=== PATIENT | female | born 1950 | race African-American/Black ===

== ENCOUNTER 2017-10-14 00:39 | Emergency (ER) | payer MEDICARE, BC ==
[2017-10-14] MEDS ORDERED: Ondansetron HCl/PF 4 MG/2 ML Vial ONE (01:55)
--- NOTE | 2017-10-14 07:56 | RAD ---
TWO VIEWS CHEST: DATE: 10/14/17. PROVIDED CLINICAL HISTORY: Cough and fever. COMPARISON: Comparison is made with the study dated 10/03/12. FINDINGS: Cardiac silhouette remains enlarged. No focal consolidation, pleural fluid, or pneumothorax apparent . Degenerative changes are seen involving the thoracic spine. IMPRESSION: Cardiomegaly without evidence for an acute cardiopulmonary process. POS: OFF
== END 2017-10-14 02:55 | disposition home or self-care (01) ==
LOC: ERS 00:39
DX: J11.1 Influenza due to unidentified influenza virus with other respiratory manifestations (principal); I48.91 Unspecified atrial fibrillation; Z79.82 Long term (current) use of aspirin; Z79.01 Long term (current) use of anticoagulants; Z79.899 Other long term (current) drug therapy
CPT/HCPCS: 71020; 96361; 96374; J2405

== ENCOUNTER 2018-10-10 22:46 | Emergency (ER) | payer MEDICARE, BC | END 2018-10-11 00:55 | disposition home or self-care (01) | LOC: ERS 22:46 | DX: L03.211 Cellulitis of face (principal); E87.5 Hyperkalemia; I10 Essential (primary) hypertension; I48.91 Unspecified atrial fibrillation; Z79.899 Other long term (current) drug therapy | CPT/HCPCS: 99283 ==

== ENCOUNTER 2021-08-23 13:24 | Outpatient (CLI) | payer MEDICARE, BC | END 2021-08-23 13:25 | disposition home or self-care (01) | LOC: BICMAMMO 13:24 | PROVIDERS: ATTEND Nurse Practitioner Family | DX: Z13.820 Encounter for screening for osteoporosis (principal); Z78.0 Asymptomatic menopausal state; M81.0 Age-related osteoporosis without current pathological fracture; M85.851 Other specified disorders of bone density and structure, right thigh; M85.852 Other specified disorders of bone density and structure, left thigh | CPT/HCPCS: 77063; 77067; 77080 ==

== ENCOUNTER 2021-10-20 13:34 | Outpatient (CLI) | payer MEDICARE, BC | END 2021-10-20 13:35 | disposition home or self-care (01) | LOC: BICRAD 13:34 | PROVIDERS: ATTEND Family Medicine | DX: M25.512 Pain in left shoulder (principal); G89.29 Other chronic pain; M47.812 Spondylosis without myelopathy or radiculopathy, cervical region | CPT/HCPCS: 72040 ==

== ENCOUNTER 2022-08-24 09:59 | Outpatient (CLI) | payer MEDICARE, BC | END 2022-08-24 10:00 | disposition home or self-care (01) | LOC: BICMAMMO 09:59 | PROVIDERS: ATTEND Family Medicine | DX: Z12.31 Encounter for screening mammogram for malignant neoplasm of breast (principal); Z80.3 Family history of malignant neoplasm of breast | CPT/HCPCS: 77063; 77067 ==

== ENCOUNTER 2023-12-09 12:40 | Outpatient (CLI) | payer BC, MEDICARE | END 2023-12-09 12:41 | disposition home or self-care (01) | LOC: BICMAMMO 12:40 | PROVIDERS: ATTEND Family Medicine | DX: Z12.31 Encounter for screening mammogram for malignant neoplasm of breast (principal); Z80.3 Family history of malignant neoplasm of breast | CPT/HCPCS: 77063; 77067 ==

== ENCOUNTER 2023-12-30 14:45 | Outpatient (CLI) | payer MEDICARE | END 2023-12-30 14:46 | disposition home or self-care (01) | LOC: BICMAMMO 14:45 | PROVIDERS: ATTEND Family Medicine | DX: Z13.820 Encounter for screening for osteoporosis (principal); N95.9 Unspecified menopausal and perimenopausal disorder; M85.89 Other specified disorders of bone density and structure, multiple sites | CPT/HCPCS: 77080 ==

== ENCOUNTER 2024-09-24 13:59 | Emergency (ER) | payer MEDICARE ==
[2024-09-24 14:47] LABS: #Basophils Less than 0.03 10x3/uL (0.0-0.2); %Basophils 0.3 % (0.0-1.0); %Eosinophils 0.4 % (0.0-10.0); %Lymphocytes 18.2 % (21.0-51.0); Hematocrit 44.9 % (36.0-47.0); Hemoglobin 14.9 g/dL (12.0-16.0); Mean Corpuscular HGB CONC 33.2 g/dL (32.0-36.0); Mean Corpuscular Hemoglobin 29.7 pg (27.0-31.0); Mean Corpuscular Volume 89.6 fL (78.0-98.0); Mean Platelet Volume 9.4 fL (7.4-10.4); Platelet Count 280 10x3/uL (130-400); RBC Distribution Width 13.5 % (11.5-14.5); Red Blood Cell (RBC) Count 5.01 mill/uL (4.20-5.40)
[2024-09-24 15:08] LABS: ALT (SGPT) 12 U/L (8-55); AST (SGOT) 16 U/L (5-34); Albumin 3.9 g/dL (3.4-4.8); Alkaline Phosphatase 47 U/L (40-110); Anion Gap 10 mmol/L (10-20); BUN (Urea Nitrogen) 10 mg/dL (9.8-20.1); Bilirubin, Total 0.5 mg/dL (0.2-1.2); Calc. Creatinine Clearance 0 mL/min (70-130); Calcium 9.4 mg/dL (7.8-10.44); Carbon Dioxide 25 mmol/L (23-31); Chloride 109 mmol/L (98-107); Estimated GFR 80; Globulin 3.9 g/dL (2.4-3.5); Glucose 101 mg/dL (83-110); Potassium 3.7 mmol/L (3.5-5.1); Protein, Total 7.8 g/dL (5.8-8.1); Sodium 140 mmol/L (136-145)
== END 2024-09-24 16:53 | disposition home or self-care (01) ==
LOC: ERS 13:59
DX: I10 Essential (primary) hypertension (principal); I48.91 Unspecified atrial fibrillation
CPT/HCPCS: 36415; 70450; 80053; 83880; 84484; 85025; 93005

== ENCOUNTER 2024-12-21 12:49 | Outpatient (CLI) | payer MEDICARE | END 2024-12-21 12:50 | disposition home or self-care (01) | LOC: BICMAMMO 12:49 | PROVIDERS: ATTEND Family Medicine | DX: Z12.31 Encounter for screening mammogram for malignant neoplasm of breast (principal); Z80.3 Family history of malignant neoplasm of breast | CPT/HCPCS: 77063; 77067 ==

== ENCOUNTER 2025-06-25 11:00 | Outpatient (CLI) | payer MEDICARE | END 2025-06-25 11:01 | disposition home or self-care (01) | LOC: PET 11:00 | PROVIDERS: ATTEND Internal Medicine | DX: C50.812 Malignant neoplasm of overlapping sites of left female breast (principal); C76.1 Malignant neoplasm of thorax; R91.8 Other nonspecific abnormal finding of lung field | CPT/HCPCS: 78815; A9552 ==

== ENCOUNTER 2025-09-20 11:36 | Outpatient (CLI) | payer MEDICARE | END 2025-09-20 11:37 | disposition home or self-care (01) | LOC: BICMAMMO 11:36 | PROVIDERS: ATTEND Internal Medicine | DX: C50.812 Malignant neoplasm of overlapping sites of left female breast (principal); M85.89 Other specified disorders of bone density and structure, multiple sites | CPT/HCPCS: 77080 ==

== ENCOUNTER 2025-10-21 09:29 | Day surgery (SDC) | payer MEDICARE ==
[2025-10-21] MEDS ORDERED: Acetaminophen 500 MG TAB ONE (10:36)
[2025-10-21] MEDS ORDERED: diphenhydrAMINE 25 MG CAP ONE (10:36)
[2025-10-21] MEDS: Acetaminophen 500 MG TAB PO SCH (10:42)
[2025-10-21] MEDS: diphenhydrAMINE 25 MG CAP PO SCH (10:42)
[2025-10-21 13:43] VITALS: BP 144/73; TEMP 97.6
== END 2025-10-21 13:32 | disposition home or self-care (01) ==
LOC: ONC/OP 09:29
PROVIDERS: ATTEND Internal Medicine
DX: D64.9 Anemia, unspecified (principal); D69.6 Thrombocytopenia, unspecified
CPT/HCPCS: 36430; 86850; 86900; 86901; 86920; P9016